=== PATIENT | male | born 1970 | race Caucasian/White ===

== ENCOUNTER → 2016-10-01 | Day surgery (SDC) | payer OTHER ==
[2016-08-24 16:16] VITALS: BMI 40.0
[2016-09-03 17:03] LABS: BASO % 0.5 %; BASO ABS # 0.06 K/uL (0-0.2); COMPLETE YES; EOS % 1.7 %; HEMATOCRIT 44.7 % (42-52); IG% 0.3 %; LYMPH % 20.5 %; LYMPH ABS # 2.43 K/uL (1.2-3.4); MEAN CELL VOLUME 90.3 fL (80-100); MEAN CORPUSCULAR HEMOGLOBIN 29.3 pg (25-34); MEAN CORPUSCULAR HGB CONC 32.4 g/dl (32-36); MEAN PLATELET VOLUME 11.6 fL (7.4-10.4); MONO % 2.4 %; NEUT % 74.6 %; PLATELET COUNT 227 K/uL (130-400); RED BLOOD COUNT 4.95 M/uL (4.7-6.1); WHITE BLOOD COUNT 11.87 K/uL (4.8-10.8)
[2016-09-03 17:20] LABS: BUN/CREATININE RATIO 20.4 (10-20); CALCIUM 8.9 mg/dl (8.5-10.1); CREATININE 0.87 mg/dl (0.60-1.40); POTASSIUM 3.8 mmol/L (3.5-5.1)
--- NOTE | 2016-09-30 10:55 | HISTORY & PHYSICAL EXAMINATION ---
DATE OF ADMISSION: 10/01/2016 SUBJECTIVE CHIEF COMPLAINT: He presents with lumbar spine pain with some right leg radiculopathy. HISTORY OF PRESENT ILLNESS: Rubin is a 46-year-old male complains of significant low back pain, with some right leg radiculopathy. It has gotten really bed over the past couple of months. He did not sustain any injury or fall recently. He states he usually walks approximately 4-6 miles a day. At this point, he is down to less than 1 mile a day due to pain. He feels as though his right leg is very spongy. He has failed recent conservative treatment including anti-inflammatories, lumbar injections as well as physical therapy. At this point, he feels as though he needs some type of surgical intervention. FAMILY MEDICAL HISTORY: Positive for rheumatoid arthritis, depression, blood clots, DVTs, PEs as well as high blood pressure. PRIOR SURGICAL HISTORY: Neck surgery 2006. ALLERGIES: No known drug allergies. CURRENT MEDICATION LIST: Includes atenolol, allopurinol, amlodipine, tramadol, equate, gabapentin, nortriptyline and tizanidine. FAMILY MEDICAL HISTORY: Positive for diabetes, blood clots, DVTs, PEs and cancer. Negative for heart disease and stroke. SOCIAL HISTORY: He is single. No alcohol use. No tobacco use. Moderately active lifestyle. REVIEW OF SYSTEMS: CONSTITUTIONAL: Positive for weight changes. EARS, NOSE, THROAT: Positive for sore throat. CARDIOVASCULAR: Positive for swelling in hands and feet. RESPIRATORY: Positive for shortness of breath. GENITOURINARY: Positive for blood in urine, kidney stones. PSYCHIATRIC: Positive for confusion. NEUROLOGIC: Positive for numbness, tingling. MUSCULOSKELETAL: Positive for joint pain, stiffness, cramps and muscle pain. PHYSICAL EXAMINATION: General: No apparent distress Cardiovascular: Normal RRR; normal s1,s2. No s3 auscultated Respiratory: Equal and b/l breath sounds; no rales, rhonchi, wheezes Abdominal: No organomegaly percussed, normal bowel sound auscultated; non-tender Integumentary: No rashes, lesions. Musculoskeletal: He does have significant pain with straight leg raises bilaterally. His right is worse than his left on examination. He does have slight hyperreflexia bilaterally in the lower extremities. He has approximately 2-3 beats of clonus bilaterally in the lower extremities. No significant pain with palpation over the lumbar segments. He does have slight weakness in his quadriceps muscle on the right side compared to the left. X-RAYS: Recent x-rays taken does show he has significant hyperlordosis of the lumbar spine. There is approximately 79 degrees measured from the sacrum to the L1 endplate. No sign of any large spondylolisthesis or lysis. There are some degenerative changes of the lumbar spine as well. 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 PLAN: At this time, we did offer him surgery, laminectomy and decompression with a spinal fusion from L3-S1. We went over the surgery in detail with him. Went over the risks and benefits. We did answer questions on anticipated or expected recovery time. We did provide him with a back brace here in the office today for postop. Also provided him with postop medications. Will follow him back up in the office approximately 10-14 days postop for suture removal, wound inspection at that time as well. YA
[~2016-10-01] VITALS: Ht 177.8 cm; Wt 127.3 kg
[~2016-10-01] MED LIST: ALLO300T2 PO; ASPI325T45 PO; ATEN-175 PO; CEFAZOLIN 3000 MG/65 ML D5W 65 ML IV SCH; CEFAZOLIN 3000 MG/65 ML D5W IV SCH; LACTATED RINGER'S 1000ML IV SCH; LACTATED RINGER'S 500 ML IV SCH; MULTTAB58 PO; NORT10CA PO; NSS 1000ML IV SCH; TRAM-10 PO
[2016-10-01 11:28] VITALS: BP_SYST 18; PULSE 69; TEMP 36.9; O2SAT 98; Ht 177.8 cm; Wt 127.3 kg
== END | disposition home or self-care (01) ==
LOC: C.ACU 11:09
PROVIDERS: ATTEND Orthopaedic Surgery Orthopaedic Surgery of the Spine
DX: M48.06 Spinal stenosis, lumbar region (principal)

== ENCOUNTER 2016-10-15 07:48 | Inpatient (IN) | payer OTHER ==
[2016-10-06 07:44] VITALS: BMI 39.0
--- NOTE | 2016-10-14 13:26 | HISTORY & PHYSICAL EXAMINATION ---
DATE OF ADMISSION: 10/15/2016 Surgery tomorrow, 10/15/2016, at [facility]. Lumbar laminectomy and fusion L3-S1. PAST MEDICAL HISTORY: Positive for spine problems, neck problems, upper back pain, obesity. No carcinoma, hypertension, sleep apnea, numbness, tingling. No diabetes, thyroid. MEDICATIONS: Atenolol, allopurinol, tramadol, gabapentin, nortriptyline, multi-vitamin. ALLERGIES: Negative. SURGERIES: Spine and neck surgery. REVIEW OF SYSTEMS: Denies any blurred vision, double vision, tinnitus, vertigo. Denies any chest pain, orthopnea, shortness of breath. No asthma, wheezing. No nausea, vomiting. No urgency, frequency, dysuria. The major complaint is his back and lower extremities. OBJECTIVE: GENERAL: He is 5 feet 10 inches. He is 250 pounds. He is alert, oriented. Mentation normal. HEENT: Normal. Pupils react to light and accommodation. HEART: Normal S1, S2; no S3. LUNGS: Clear to auscultation. NEUROLOGIC: He has diminished reflexes, diminished strength and muscle atrophy. Gait abnormality and claudication. VITAL SIGNS: Blood pressure 140/90, pulse of 80, afebrile. IMAGES: Reviewed, demonstrating severe stenosis of the spine. No gross instability, but some minor instability at L3-4 and L4-5. IMPRESSION: Spinal stenosis and instability, lumbar spine L3-S1. DISPOSITION: Includes a laminectomy and fusion L3-S1 at [facility] on 10/15/2016. YA
[~2016-10-15] VITALS: Ht 177.8 cm; Wt 125.0 kg
[2016-10-15] VITALS (11 sets, daily range): BP systolic 88–141; BP diastolic 51–79; PULSE 71–82; TEMP 36.7–37.4; O2SAT 93–97; Ht 177.8 cm; Wt 125.0 kg
[~2016-10-15 07:48] MED LIST changes: -CEFAZOLIN 3000 MG/65 ML D5W IV SCH; -LACTATED RINGER'S 500 ML IV SCH; -NORT10CA PO
[2016-10-15] MEDS ORDERED: NURSING VERBAL MED ORDER STA (08:34)
[2016-10-15] MEDS ORDERED: LABETALOL HCL IV 5 MG/ML 20ML IV PRN (08:45)
[2016-10-15] MEDS ORDERED: HYDROmorphone INJ 2 MG/ML SYR/VIAL IV PRN (08:45)
[2016-10-15] MEDS ORDERED: ATROPINE SULFATE 0.1 MG/ML 5ML SYR IV PRN (08:45)
[2016-10-15] MEDS ORDERED: ONDANSETRON INJ 2 MG/ML 2 ML VIAL IV PRN ×2 (08:45→13:00)
[2016-10-15] MEDS ORDERED: FENTANYL CITRATE INJ 50 MCG/1 ML 2 ML VIAL ONE ×4 (08:48→12:30)
[2016-10-15] MEDS ORDERED: MIDAZOLAM HCL 1 MG/ML 2ML VIAL ONE (08:48)
[2016-10-15] MEDS ORDERED: BUPIVACAINE/EPINEPHRINE 0.5% MPF 1:200,000 30 ML VIAL ONE (09:23)
[2016-10-15] MEDS ORDERED: VANCOMYCIN HCL 1000MG/20ML VIAL ONE (09:23)
[2016-10-15] MEDS ORDERED: BACITRACIN 50000 UNIT VIAL ONE (09:23)
[2016-10-15] MEDS ORDERED: THROMBIN FOR SOLN 20000 UNIT KIT ONE (09:23)
[2016-10-15] MEDS ORDERED: GELATIN SPONGE SZ 100 ONE ×2 (09:23→12:00)
--- NOTE | 2016-10-15 09:34 | History & Physical Bridge Note ---
H&P Re-Evaluation Bridge Note: I have examined the patient, reviewed the History & Physical and in the interval since the performance of the History & Physical I have noted the following changes of clinical significance: No changes noted
[2016-10-15] MEDS ORDERED: HYDROmorphone INJ 2 MG/ML SYR/VIAL ONE ×2 (10:05→12:39)
--- NOTE | 2016-10-15 12:27 | DIAGNOSTIC IMAGING REPORT ---
Intraoperative lumbar spine single view CLINICAL HISTORY: L3-S1 LAMINECTOMY AND FUSION COMPARISON STUDY: No previous studies for comparison. FINDINGS: 7.9 seconds of fluoroscopic time was utilized. A single crosstable lateral view of the lumbar spine is provided for interpretation. This reveals pedicle screws at the L4-L5 level. IMPRESSION: Intraoperative radiograph revealing pedicle screws at the L4-L5 level. Electronically signed by: Negro Oswald M.D. 10/15/2016 12:25 PM Dictated Date/Time: 10/15/2016 12:24 PM
[2016-10-15] MEDS ORDERED: SODIUM CHLORIDE 0.9% 1000ML 1,000 ML IV SCH (12:51)
--- NOTE | 2016-10-15 12:52 | [facility] Post Operative Brief Note ---
Immediate Operative Summary Operative Date Oct 15, 2016. Pre-Operative Diagnosis Spinal stenosis and instability, lumbar spine L3-S1 Post-Operative Diagnosis same as preop Procedure(s) Performed L3-S1 Laminectomy; L4-L5 Posterior instrumented fusion Surgeon Dr. Pandya Tractor Trailer Mechanic Surgeon(s) Reagan Patel PA-C Estimated Blood Loss 500 ml Findings severe stenosis Specimens none Complication(s) None Disposition Recovery Room / PACU
[2016-10-15] MEDS ORDERED: ONDANSETRON INJ 2 MG/ML 2 ML VIAL ONE (12:55)
[2016-10-15] MEDS ORDERED: ROCURONIUM BROMIDE 10 MG/ML 5 ML VIAL ONE (12:55)
[2016-10-15] MEDS ORDERED: LIDOCAINE HCL 2% 2 ML VIAL (20MG/ML) ONE (12:55)
[2016-10-15] MEDS ORDERED: DEXAMETHASONE SOD INJ 4 MG/ML VIAL ONE (12:55)
[2016-10-15] MEDS ORDERED: GLYCOPYRROLATE INJ 0.2 MG/ML VIAL ONE (12:55)
[2016-10-15] MEDS ORDERED: KETOROLAC TROMETHAMINE 30 MG/ML VIAL ONE (12:55)
[2016-10-15] MEDS ORDERED: PROPOFOL IV EMULSION 10 MG/ML 20 ML VIAL IV ONE (12:55)
[2016-10-15] MEDS ORDERED: NEOSTIGMINE METHYLSULFATE 5 MG/5 ML SYR ONE (12:55)
[2016-10-15] MEDS ORDERED: HYDROmorphone HCL 0.5MG/ML 50 ML CASSETTE ONE (12:59)
[2016-10-15] MEDS ORDERED: HYDROmorphone INJ 1 MG/ML SYR ONE (12:59)
[2016-10-15] MEDS ORDERED: METOCLOPRAMIDE HCL INJ 5 MG/ML 2 ML VIAL IV PRN (13:00)
[2016-10-15] MEDS ORDERED: ACETAMINOPHEN 325 MG TAB PO PRN (13:00)
[2016-10-15] MEDS ORDERED: PROMETHAZINE HCL INJ 12.5 MG in SODIUM CHLORIDE 0.9% 50ML 50 ML IV PRN (13:00)
[2016-10-15] MEDS ORDERED: LORAZEPAM 1 MG TAB PO PRN (13:00)
[2016-10-15] MEDS ORDERED: MAGNESIUM HYDROXIDE SUSP 30 ML UDC PO PRN (13:00)
[2016-10-15] MEDS ORDERED: NALOXONE HCL 0.4 MG/1 ML VIAL/CARP IV PRN (13:00)
[2016-10-15] MEDS ORDERED: LORAZEPAM INJ 1 MG in SYRINGE 0 ML IV PRN (13:00)
[2016-10-15] MEDS ORDERED: ALBUTEROL 0.083% NEBU SOLN 3 ML VIAL INH STA (13:37)
--- NOTE | 2016-10-15 13:41 | OPERATIVE REPORT ---
DATE OF OPERATION: 10/15/2016 PREOPERATIVE DIAGNOSIS: Severe spinal stenosis L3 to the sacrum, mild to moderate instability L4-L5 with incompetent facet joints. POSTOPERATIVE DIAGNOSIS: Same. PROCEDURE: Include a laminectomy L3 to the sacrum, lumbar spine L3, L4 and L5, foraminotomies, partial facetectomies. We did instrumented fusion L4-L5 lumbar spine, bilateral. We also did a posterior lateral fusion L4-L5 lumbar spine. Comorbidities was morbid obesity of the patient. SURGEON: Dr. Pandya. SLEEVE SETTER SAFETY STITCH: Reagan Patel PA-C. Reagan was instrumental in protecting all associated nerve roots, blood vessels and x-ray guidance with the pedicle screw instrumentation, he was our assistant attorney general. COMPLICATIONS: No apparent complication. OPERATION AND FINDINGS: DESCRIPTION OF PROCEDURE: The patient was taken to the operating room and general intubated anesthetic provided to the patient, placed prone, prepped and draped sterile. Scrubbed first with Betadine, prepped with ChloraPrep. We made a skin incision and fascia incision. The patient was morbidly obese. The retractors used were 4-3/4 inches in length just to get down to the facet joints. I put in a deep self-retaining retractor. We carefully coagulated all vessels. We did the best that we possibly could. We then decompressed the neural elements. I used curettes, burs, rongeurs, taking pressure off the nerve roots from 3, 4, 5, and S1 area bilaterally. We undercut the facets and did excellent foraminotomies. I was pleased with the freedom of the associated nerve roots. Through the dissection, I felt it was unstable moderately L4-L5 with an incompetent facet joints. We decided to fuse this area. Pedicle screws safely placed into 4 and into 5, longitudinal bigg followed by the [employer] we locked this down. We then bone grafted out over the transverse processes as well. We then irrigated thoroughly with approximately 500-600 mL of fluid. We placed bone graft in the wound, gentamicin, Hemovac drain. Closed fascia to fascia with 1-0 Vicryl suture water tight fashion, 2-0 in the subcuticular layer, staple gun on the skin. Sterile dressing applied. The patient returned to PACU in improved and stable condition. Also, comorbidities included morbid obesity of the gentleman using 4-3/4 inch blades just to get to his facet joints. BMI well over 40. I attest to the content of the Intraoperative Record and any orders documented therein. Any exception s are noted below.
[2016-10-15] MEDS: HYDROmorphone HCL 0.5MG/ML 50 ML CASSETTE IV PRN ×3 (14:09→23:17)
--- NOTE | 2016-10-15 14:41 | Anesthesiology Progress Note ---
Anesthesia Post Op Note Date & Time Oct 15, 2016 at 14:41 Vital Signs Pain Intensity: 5.0 Vital Signs Past 12 Hours Date Time Temp Pulse Resp B/P (MAP) Pulse Ox O2 Delivery O2 Flow Rate FiO2 10/15/16 14:39 76 16 127/76 (93) 95 Nasal Cannula 2.0 10/15/16 14:10 Nasal Cannula 2.0 10/15/16 14:10 37.1 80 16 121/76 (91) 97 Nasal Cannula 2.0 10/15/16 14:00 77 12 150/64 96 Nasal Cannula 4 10/15/16 13:45 37.2 79 12 123/72 98 Nasal Cannula 4 10/15/16 13:36 71 18 97 Nasal Cannula 4.0 10/15/16 13:35 73 12 133/62 99 Mask 8 10/15/16 13:25 71 13 142/57 99 Nasal Cannula 4 10/15/16 13:15 70 12 142/60 98 Nasal Cannula 4 10/15/16 13:05 72 12 129/66 100 Mask 10 10/15/16 12:55 74 12 129/90 99 Mask 10 10/15/16 12:49 36.7 80 16 150/87 98 Mask 10 10/15/16 08:15 36.7 78 20 141/79 96 Room Air 10/15/16 08:10 36.7 78 20 141/79 Notes Mental Status: alert / awake / arousable, participated in evaluation Pt Amnestic to Procedure: Yes Nausea / Vomiting: adequately controlled Pain: adequately controlled Airway Patency, RR, SpO2: stable & adequate BP & HR: stable & adequate Hydration State: stable & adequate Anesthetic Complications: no major complications apparent
[2016-10-15] MEDS: SODIUM CHLORIDE 0.9% 1000ML 1,000 ML IV SCH (15:12)
[2016-10-15] MEDS: CEFAZOLIN IV 2,000 MG in DEXTROSE 5% 50ML 50 ML IV SCH (18:00)
[2016-10-15] MEDS: KETOROLAC TROMETHAMINE 30 MG/ML VIAL IV SCH ×2 (18:00→23:24)
[2016-10-15] MEDS: DEXAMETHASONE INJ 10 MG in SYRINGE 0 ML IV SCH (21:07)
[2016-10-16] VITALS (8 sets, daily range): BP systolic 105–134; BP diastolic 42–81; PULSE 62–90; TEMP 36.4–37.3; O2SAT 91–98
[2016-10-16] MEDS: SODIUM CHLORIDE 0.9% 1000ML 1,000 ML IV SCH (00:31)
[2016-10-16] MEDS: CEFAZOLIN IV 2,000 MG in DEXTROSE 5% 50ML 50 ML IV SCH ×2 (02:27→10:00)
[2016-10-16] MEDS: DEXAMETHASONE INJ 10 MG in SYRINGE 0 ML IV SCH ×3 (05:23→21:10)
[2016-10-16] MEDS ORDERED: BISACODYL 5 MG TABEC PO PRN (06:00)
[2016-10-16] MEDS ORDERED: BISACODYL 10 MG SUPP PR PRN (06:00)
[2016-10-16] MEDS ORDERED: DC PCA ONE (06:00)
[2016-10-16] MEDS: KETOROLAC TROMETHAMINE 30 MG/ML VIAL IV SCH ×3 (06:10→18:26)
[2016-10-16] MEDS ORDERED: NURSING DECISION MEDICATION ORDER SCH (06:30)
[2016-10-16 06:58] LABS: HEMATOCRIT 35.5 % (42-52)
--- NOTE | 2016-10-16 07:56 | Discharge Instructions ---
Discharge Instructions Date of Service Oct 16, 2016. Admission Reason for Admission: Spinal Stenosis Discharge Discharge Diagnosis / Problem: same Discharge Goals Goal(s): Improve function Activity Recommendations Activity Limitations: as noted below Lifting Limitations: gradually increase as tolerated, until after follow-up appointment Exercise/Sports Limitations: until after follow-up appointment May Resume Sexual Activity: after follow-up appointment Shower/Bathe: keep incision dry . Instructions / Follow-Up Instructions / Follow-Up MEDICATIONS: Please take your prescriptions as instructed at your pre-op appointment. SPECIAL CARE: The following information is intended to answer some of the common questions and concerns regarding your surgery. Each patient is an individual and receives individual counselling throughout the course of treatment, from diagnosis to surgery all the way through recovery. What follows is not an exhaustive list, but should be a useful guide to some of the common questions and concerns patients have regarding their surgeries. These are not provided to keep you from calling us; rather, they give you something accurate and concrete to reference as you recover from your procedure. If you need us, we are available to you. As always, if you are not sure about something, call us at [phone]. MEDICAL EMERGENCIES: For these conditions, call 911 or go to your local hospital-based Emergency Department - not [facility] or equivalent. * Paralysis * Severe chest pain or difficulty breathing * Swelling or redness of either leg Spine procedures can be rather complex and though complications are rare, they do occur. In such cases, effective advice regarding emergency situations cannot always be addressed over the telephone. You may be referred to the emergency department for more effective management of your problem. Activity Limitations: It is important to give your body time to heal, so please limit your activities : * In general, don't do anything that moves your spine too much. You should avoid contact sports, twisting or heavy lifting while you recover. * 5-10 pounds is all you should attempt to lift. * You should not plan on driving for approximately 3 weeks and you should avoid traveling more than 30-45 minutes at a time. Longer trips should be broken down with walking breaks spaced appropriately. * Physical therapy is not usually required. * Walking and good posture practices will help you recover and regain your function. * Avoid straining or sudden changes in position. * In general, the goal is to take it easy and recover. Don't cause any new problems. Just relax. Showers: * Do not take a bath, use a Jacuzzi or hot tub or otherwise submerge your incision. * It is usually safe to take a shower 4-5 days after your surgery. * Your incision does not require any special creams or ointments. * Simply clean it with soap and water, dry and re-dress with a clean bandage afterwards. Incision: * Keep incision clean, dry and protected until your first follow-up appointment. * Some amount of drainage and redness is normal. Any drainage should be fairly clear and not have a foul odor. * If you feel anything is wrong or you have excessive drainage, please call us. * Your stitches and spenser will be removed 10-14 days after your surgery. At the time of your first post-op visit. * Neck surgeries are typically closed with a suture underneath the skin. The steri-strips over the incision should be maintained until we see you in the office. Bracing: * You may be provided with a back or neck brace to encourage good posture and prevent injury. It will remind you not to do too much as you heal and will alert others to the fact that you have had a surgery. * Back braces may be removed for showers and when you are resting at home. They must be worn when you are walking around for any period of time or for travel. * For neck surgery, you will likely be provided with two cervical collars. The soft collar ([place] or foam rubber) is worn most commonly throughout the day and while sleeping. The plastic collar (provided at the hospital) is for showering/bathing. * Except while eating, collars should remain in place. More specifically, bracing is provided for a purpose and should be worn. * Please obtain your brace or collars prior to your operation and bring them to the hospital with you on the day of surgery. * You should also bring your collars to your post-op appointment with Dr. Pandya. You should always take good care of your body and practice healthy habits, especially following surgery. You should: * Follow your doctor's treatment plan * Sit and stand properly with good posture (ears over shoulders, shoulders over hips) Don't slouch * Learn to lift correctly * Exercise regularly (low-impact aerobic exercise is especially good, but check with your doctor first) * Generally, be up and walking for 5-10 minutes at a time at least 3-4 times per day from the day you get home * Increasing walking to tolerance until you can walk for 20-30 minutes at a time * Attain and maintain a healthy body weight * Eat healthy foods ( a well-balanced, low-fat diet rich in fruits and vegetables) and get enough calcium * Avoid excessive use of alcohol When to call our office - If you notice any of the following: * Increased pain not relieve by pain medicine * Fevers greater then 100 degrees F, chills or flu symptoms * Increased redness around incision * Drainage from the incision that is not clear * Any foul smelling drainage * Swelling or fluid collection beneath the skin Miscellaneous: * In the hospital, you may be given a walker or cane for support while walking. These are temporary needs and are intended to prevent injuries due to falls. You may discontinue them when you feel strong and steady enough on your feet. * Sleep in a comfortable position. We find that many patients find a lounge chair or recliner with several pillows to be beneficial in the early post-operative period. * The support stockings should be used for 7-10 days and may be discontinued when you are back to walking more and conducting usual household activities. No problem is insignificant. We are here to help you and get you well. Contact us at [phone]. Definitions: Foraminotomy: If part of the disc or a bone spur (osteophyte) is pressing on a nerve as it leaves the vertebra (through an exit called the foramen), a foraminotomy may be done. Otomy means "to make an opening." A foraminotomy is making the opening of the foramen larger, so the nerve can exit without being compressed. Laminotomy: Similar to the foraminotomy, a laminotomy makes a larger opening, this time in your bony plate protecting your spinal canal and spinal cord (the lamina). The lamina may be pressing on your nerve, so the surgeon may make more room for the nerves using a laminotomy. Laminectomy: Sometimes, a laminotomy is not sufficient. The surgeon may need to remove all or part of the lamina. This procedure is called a laminectomy. This can often be done at many levels without any harmful effects. Current Hospital Diet Patient's current hospital diet: AHA Diet (Heart Healthy) Discharge Diet Recommended Diet: Regular Diet Procedures Procedures Performed: L3-S1 Laminectomy; L4-L5 Posterior instrumented fusion Pending Studies Studies pending at discharge: no Medical Emergencies . Who to Call and When: Medical Emergencies: If at any time you feel your situation is an emergency, please call 911 immediately. . Non-Emergent Contact Non-Emergency issues call your: Surgeon . "Provider Documentation" section prepared by Norberto Pandya. . VTE Core Measure Inpt VTE Proph given/why not?: Treatment not indicated
[2016-10-16] MEDS ORDERED: HYDROmorphone INJ 2 MG/ML SYR/VIAL IV PRN (08:00)
[2016-10-16] MEDS ORDERED: OXYCODONE/ACETAMINOPHEN 5-325 TAB PO PRN ×2 (08:00)
[2016-10-16] MEDS ORDERED: HYDROmorphone INJ 1 MG/ML SYR IV PRN (08:00)
--- NOTE | 2016-10-16 08:21 | PROGRESS NOTE ---
DATE: 10/16/2016 DATE: 10/16/2016. SUBJECTIVE: Moderate complaints of pain. Alert, oriented. Some improvement in his lower extremities. No chest pain, no shortness of breath. No anxiety or confusion. OBJECTIVE: 36.5 temperature, hematocrit 35.1. ASSESSMENT: Status post spinal reconstructive surgery. DISPOSITION: Will get him up and ambulatory today. Dressing change tomorrow. Hopefully discharge home tomorrow as well.
[2016-10-16] MEDS: POLYETHYLENE (MIRALAX) 17 GM PACK PO SCH (09:23)
[2016-10-16] MEDS: MULTIVITAMIN TAB PO SCH (09:24)
[2016-10-16] MEDS: ALLOPURINOL 300 MG TAB PO SCH (09:24)
--- NOTE | 2016-10-16 10:26 | Anesthesiology Progress Note ---
Anesthesia Post Op Note Date & Time Oct 16, 2016 at 10:25 Vital Signs Pain Intensity: 0.0 Vital Signs Past 12 Hours Date Time Temp Pulse Resp B/P (MAP) Pulse Ox O2 Delivery O2 Flow Rate FiO2 10/16/16 09:26 90 123/70 (87) 10/16/16 07:00 36.9 70 16 131/76 (94) 96 Room Air 10/16/16 03:10 36.5 70 16 109/65 (80) 97 Room Air 10/16/16 00:20 36.8 78 16 105/42 (63) 91 Room Air 10/15/16 23:22 Room Air Notes Mental Status: alert / awake / arousable, participated in evaluation Pt Amnestic to Procedure: Yes Nausea / Vomiting: adequately controlled Pain: adequately controlled Airway Patency, RR, SpO2: stable & adequate BP & HR: stable & adequate Hydration State: stable & adequate Anesthetic Complications: no major complications apparent
[2016-10-17] MEDS: DEXAMETHASONE INJ 10 MG in SYRINGE 0 ML IV SCH (05:07)
[2016-10-17] MEDS: MULTIVITAMIN TAB PO SCH (07:51)
[2016-10-17] MEDS: ALLOPURINOL 300 MG TAB PO SCH (07:51)
[2016-10-17] MEDS: POLYETHYLENE (MIRALAX) 17 GM PACK PO SCH (07:51)
[2016-10-17 10:35] VITALS: BP 112/70; PULSE 77; TEMP 36.6; O2SAT 96
--- NOTE | 2016-10-22 09:38 | DISCHARGE SUMMARY ---
SUBJECTIVE: Minimal complaints of pain. Alert, oriented. No chest pain or shortness of breath. No confusion. OBJECTIVE: Vital signs stable. Wound is clean. ASSESSMENT: Status post reconstructive spine surgery. DISPOSITION: Discharge home in improved stable condition. Follow up in the office in 10 days. Prescriptions and walkers provided.
== END 2016-10-17 13:41 | disposition home or self-care (01) | DRG 460 ==
LOC: C.ACU 07:48 → C.3E 10:00 → ENRESERV 13:21
PROVIDERS: ADMIT Orthopaedic Surgery Orthopaedic Surgery of the Spine; ATTEND Orthopaedic Surgery Orthopaedic Surgery of the Spine
PROC: 0SG30A1 (ICD-10-PCS; principal; 2016-10-15 09:30)
DX: M48.07 Spinal stenosis, lumbosacral region (principal); E66.01 Morbid (severe) obesity due to excess calories; Z68.39 Body mass index [BMI] 39.0-39.9, adult

== ENCOUNTER → 2017-09-23 | Day surgery (SDC) | payer OTHER ==
[2017-09-22 11:38] VITALS: Ht 177.8 cm; Wt 118.2 kg
[~2017-09-23] VITALS: Ht 177.8 cm; Wt 118.2 kg
[~2017-09-23] MED LIST changes: -ASPI325T45 PO; +BUPIVACAINE 0.25% 2.5MG/ML PF 10 ML VIAL ONE; -CEFAZOLIN 3000 MG/65 ML D5W 65 ML IV SCH; +DEXAMETHASONE SOD INJ 4 MG/ML VIAL ONE; -LACTATED RINGER'S 1000ML IV SCH; +LIDOCAINE HCL 1% MPF 5 ML VIAL ONE; -NSS 1000ML IV SCH
--- NOTE | 2017-09-23 09:09 | Discharge Instructions-SurgCtr ---
Discharge Instructions Date of Service September 23, 2017. Visit Reason for Visit: Piriformis Syndrome Discharge Discharge Diagnosis / Problem: same Discharge Goals Goal(s): Improve function Activity Recommendations Activity Limitations: resume your previous activity Anesthesia . Post Anesthesia Instructions: If you have had General Anesthesia or IV Sedation: * Do not drive today. * Resume driving when surgeon permits. * Do not make important decisions or sign legal documents today. * Call surgeon for: 1. Temperature elevations greater than 101 degrees F. 2. Uncontrollable pain. 3. Excessive bleeding. 4. Persistent nausea and vomiting. 5. Medication intolerance (nausea, vomiting or rash). * For nausea and vomiting use only clear liquids such as: tea, soda, bouillon until nausea subsides, then gradually increase diet as tolerated. * If you have any concerns or questions, call your surgeon's office. If physician is unavailable and it is an emergency, call 911 or go to the nearest emergency room. . Diet Recommendations Home Diet: no limitations Procedures Procedures Performed: BILATERAL PIRIFORMIS INJECTIONS WITH 2CC MARCAINE Pending Studies Studies pending at discharge: no Medical Emergencies . Who to Call and When: Medical Emergencies: If at any time you feel your situation is an emergency, please call 911 immediately. . Non-Emergent Contact Non-Emergency issues call your: Primary Care Provider . . "Provider Documentation" section prepared by Norberto Pandya. .
--- NOTE | 2017-09-23 09:09 | [facility] Post Operative Brief Note ---
Immediate Operative Summary Operative Date September 23, 2017. Pre-Operative Diagnosis PIRIFORMIS SYNDROME Post-Operative Diagnosis PIRIFORMIS SYNDROME Procedure(s) Performed BILATERAL PIRIFORMIS INJECTIONS WITH 2CC MARCAINE Surgeon DR. Juan ALFARO Patient Service Associate Surgeon(s) 0 Estimated Blood Loss 0 Findings Consistent with Post-Op Diagnosis Specimens 0 Anesthesia Type Local
[2017-09-23 09:11] VITALS: TEMP 36.7
[2017-09-23 09:35] VITALS: BP 130/85; PULSE 72; O2SAT 98
--- NOTE | 2017-09-23 10:37 | OPERATIVE REPORT ---
DATE OF OPERATION: 09/23/2017 PREOPERATIVE DIAGNOSIS: Piriformis syndrome, bilateral hips. POSTOPERATIVE DIAGNOSIS: Piriformis syndrome, bilateral hips. PROCEDURE: Piriformis muscle injection bilateral hips. DESCRIPTION OF PROCEDURE: Patient was taken to the fluoroscopy room, [facility]. Prepped and draped sterile. Using pain as might guide plus anatomic landmarks, I was able to inject the piriformis muscle bilaterally. A total of 4 mL Xylocaine with 1 mL dexamethasone injected without incident. We were right on the spot as far as his pain was concerned, the needle withdrawn. He was returned to recovery room satisfactory and stable. No apparent complications. I attest to the content of the Intraoperative Record and any orders documented therein. Any exception s are noted below.
== END | disposition home or self-care (01) ==
LOC: X.SURG 07:35
PROVIDERS: ATTEND Orthopaedic Surgery Orthopaedic Surgery of the Spine
DX: G57.03 Lesion of sciatic nerve, bilateral lower limbs (principal); M06.9 Rheumatoid arthritis, unspecified; M32.9 Systemic lupus erythematosus, unspecified; Z86.718 Personal history of other venous thrombosis and embolism; I10 Essential (primary) hypertension